=== PATIENT | female | born 1955 | race Caucasian/White ===

== ENCOUNTER → 2016-09-12 | Outpatient (CLI) | payer BC ==
[~2016-09-12] MED LIST: CEPH-583 PO; HYDR-4072 PO; HYDR-4074 PO; LEVO50TA69 PO; MULT-543 PO
== END ==
LOC: WC.BC 08:19
DX: Z12.31 Encounter for screening mammogram for malignant neoplasm of breast (principal)
CPT/HCPCS: 77063; G0202